=== PATIENT | male | born 1955 | race Caucasian/White ===

== ENCOUNTER 2017-12-29 10:55 | Day surgery (SDC) | payer BC ==
[~2017-12-29 10:55] MED LIST: Acetaminophen TAB* 325 MG PO PRN; Buffered Lidocaine 0.9% SYRIN* 5 ML/SYR SYRINGE INTRADERM ONE; Famotidine IV* 10 MG/ML 2 ML (20 mg) IV ONE; Famotidine IV* 10 MG/ML 2 ML (20 mg) ONE; HYDROmorphone INJ* 1 MG/ML CARPUJECT SYRINGE IV PRN; Naloxone* 0.4 MG/ML 1 ML VIAL IV PRN; Ondansetron INJ* 2 MG/ML VIAL IV PRN; oxyCODONE TAB* 5 MG TAB PO PRN
[2017-12-29] MEDS ORDERED: ceFAZolin 2 GM PREMIX (*) 2 GM/50 ML BAG IVPB ONE (11:05)
[2017-12-29] MEDS ORDERED: Midazolam* 1 MG/ML 5 ML VIAL (5 MG) ONE (11:12)
[2017-12-29] MEDS ORDERED: fentaNYL* 50 MCG/ML 2 ML VIAL (100 MCG VIAL) ONE (11:12)
[2017-12-29] MEDS ORDERED: Propofol* 500 MG/50 ML BTL ONE (12:06)
[2017-12-29] MEDS ORDERED: DiMENhydriNATE IV* 50 MG/ML VIAL ONE (12:10)
[2017-12-29] MEDS ORDERED: Dexamethasone IV* 4 MG/ML 1 ML (4 MG) ONE (12:10)
[2017-12-29] MEDS ORDERED: Lidocaine 2% PF * 5 ML VIAL ONE (12:10)
[2017-12-29] MEDS ORDERED: Ketorolac INJ* 30 MG/ML 1 ML VIAL ONE (12:10)
[2017-12-29] MEDS ORDERED: Bupivacaine 0.25% SDV* 30 ML ONE (12:50)
[2017-12-29 14:13] VITALS: BP 101/75
--- NOTE | 2017-12-30 16:08 | OP ---
OPERATIVE REPORT: DATE OF OPERATION: 12/29/17 DATE OF : 51 SURGEON: Ken Haney MD. MEDIA RELATIONS COORDINATOR: EMMIE Ortiz student. ANESTHESIOLOGIST: Dr. Rincon. ANESTHESIA: Local MAC. PRE-OP DIAGNOSIS: Right index finger tip partial amputation. POST-OP DIAGNOSIS: Right index finger tip partial amputation. OPERATIVE PROCEDURE: Revision amputation, left index finger. INDICATIONS: Rhys had an injury with a wood jointer. We talked about his options. I told him that we would assess and see how much could be preserved. I talked to him about the potential of a skin graft. It looks amenable with ablation of the nail bed. He understood. He wanted to proceed with surgery. ESTIMATED BLOOD LOSS: 5 mL. COMPLICATIONS: None. FINDINGS: See above and below. DESCRIPTION OF PROCEDURE: Rhys was seen in the preoperative holding area. The correct side, site, and procedure were identified. We came back to the operating room where a digital block was performed, the arm was prepped and draped in the usual fashion, and time-out was performed. I exsanguinated the finger with a Tourni-Cot device and left it on proximally throughout the procedure. I went ahead and washed and cleaned up the wound. The distal phalanx, over half of it was already gone, another portion was in already in fragments. There was nothing by the germinal matrix left. I decided to ablate the nail, so I went ahead and excised the dorsal aspect of the nail fold. I excised the entirety of the germinal matrix. I excised the bony fragments with the [place] blade. I then took a bone cutter and trimmed the distal phalanx down to a nice clean edge. At this point, I could easily bring the volar flap up and over and close the wound. I therefore excised the digital nerves distally in an effort to prevent neuroma formation. I brought the volar flap up. I trimmed the dog ears and closed the wound with 4-0 nylon suture. The wounds were dressed with Xeroform, 1-inch Roly, and a BandNet finger dressing was applied. After Tourni-Cot was cuff off, the volar flap did pink up. He was taken to recovery room in stable condition. [id number]/[facility] #: [id number] [facility]
== END 2017-12-29 14:30 | disposition home or self-care (01) ==
LOC: OREAST 10:55
PROVIDERS: ATTEND Orthopaedic Surgery Hand Surgery
DX: S61.311A Laceration without foreign body of left index finger with damage to nail, initial encounter (principal); W31.2XXA Contact with powered woodworking and forming machines, initial encounter; Y92.9 Unspecified place or not applicable; Z87.891 Personal history of nicotine dependence
CPT/HCPCS: 88302; J0690; J1100; J1240; J1885; J2250; J2704; J3010

== ENCOUNTER 2018-05-30 19:36 | Emergency (ER) | payer BC ==
[2018-05-30] MEDS ORDERED: Dexamethasone IV* 4 MG/ML 1 ML (4 MG) PO ONE (19:44)
[2018-05-30] MEDS ORDERED: diPHENhydraMINE PO* 25 MG PO ONE (19:45)
[2018-05-30 19:49] VITALS: BP 150/94
--- NOTE | 2018-05-30 19:52 | ED ---
Allergic Reaction/Systemic - HPI Summary HPI Summary: 62 yr old with the complaint of back of tongue, and throat feel swollen, tightness in throat, swelling to the face. Onset 1 pm today. He took 50 mg benadryl at 130 pm and another 25 mg at 430 pm. He really has not improved per the patient, and feels his face is more swollen. He denies drooling. No stridor. This happened to him in the past after eating banana. - History of Current Complaint Time Seen by Provider: 05/30/18 19:38 - Allergies/Home Medications Allergies/Adverse Reactions: Allergies Allergy/AdvReac Type Severity Reaction Status Date / Time No Known Allergies Allergy Verified 05/30/18 19:49 Home Medications: Home Medications Albuterol HFA INHALER* [Ventolin HFA Inhaler*] 2 puff INH Q4H PRN 05/30/18 [ History Confirmed 05/30/18] PMH/Surg Hx/FS Hx/Imm Hx Previously Healthy: Yes Respiratory History: Reports: Hx Asthma - seasonal- no symptoms in years Musculoskeletal History: Reports: Hx Arthritis Sensory History: Reports: Hx Contacts or Glasses Denies: Hx Hearing Aid Opthamlomology History: Reports: Hx Contacts or Glasses - Cancer History Hx Chemotherapy: No - Surgical History Surgery Procedure, Year, and Place: bi-lat shoulders, bi-lat carpel tunnel, L knee torn cartilege repair. deviated septum repair Hx Anesthesia Reactions: No Infectious Disease History: Denies: Traveled Outside the [place] in Last 30 Days - Family History Known Family History: Positive: None - Social History Lives: With Family Alcohol Use: Rare Substance Use Type: Reports: None Smoking Status (MU): Former Smoker Amount Used/How Often: 4 years 1/2ppd Review of Systems Constitutional: Negative Positive: Other - tongue and back of throat tight Positive: Other - no hives All Other Systems Reviewed And Are Negative: Yes Physical Exam Appearance: Positive: Well-Appearing, No Pain Distress Skin: Positive: Warm, Skin Color Reflects Adequate Perfusion Eyes: Positive: EOMI, GLORIA, Other: - eyelids with mild edema. ENT: Positive: Other - the back of tongue appears a little swollen and the soft palate is with some edema and redness. Uvula midline No drooling. no stridor.. Negative: Nasal congestion, Hoarse voice Neck: Positive: Nontender Respiratory/Lung Sounds: Positive: Clear to Auscultation, Breath Sounds Present Cardiovascular: Positive: RRR. Negative: Murmur Abdomen Description: Negative: Distended Musculoskeletal: Positive: Strength/ROM Intact Neurological: Positive: Sensory/Motor Intact, Alert, Oriented to Person Place, Time, CN Intact II-III Psychiatric: Positive: Normal - Bigg Coma Scale Best Eye Response: 4 - Spontaneous Best Motor Response: 6 - Obeys Commands Best Verbal Response: 5 - Oriented Coma Scale Total: 15 Allergic Reaction Course/Dx - Course Course Of Treatment: 62 yr old with some evidence of angioedema. He refuses ambulance transfer. Risks understood by patient and AMA form signed. Case DW Israel Deleon NP in [facility] and they are aware he is coming over there. - Diagnoses Provider Diagnoses: Angioedema, Allergic reaction Discharge - Sign-Out/Discharge Documenting (check all that apply): Patient Departure All imaging exams completed and their final reports reviewed: No Studies - Discharge Plan Condition: Good Disposition: AGAINST MEDICAL ADVICE Referrals: Rhys Hawk MD [Primary Care Provider] - - Billing Disposition and Condition Condition: GOOD Disposition: Against Medical Advice
== END 2018-05-30 20:01 | disposition left against medical advice (07) ==
LOC: UCCORT 19:36
DX: T78.3XXA Angioneurotic edema, initial encounter (principal); J45.909 Unspecified asthma, uncomplicated; Z87.891 Personal history of nicotine dependence
CPT/HCPCS: 99212; A9270-GY; G0463; J1100

== ENCOUNTER 2018-08-23 14:46 | Emergency (ER) | payer BC, MEDICARE ==
[2018-08-23 14:59] VITALS: BP 151/84
--- NOTE | 2018-08-23 15:14 | UC ---
Throat Pain/Nasal Chad HPI - HPI Summary HPI Summary: 63-year-old gentleman here with a chief complaint of 3-1/2 weeks of upper respiratory tract infection symptoms. Initially started out as a runny nose sore throat. It gradually moved into his chest and his been having increasing wheezing and shortness of breath. He uses albuterol inhaler which does help with the wheezing and shortness of breath. Some chills no recent fevers. Is also having some left ear pain and decreased hearing in that ear. - History of Current Complaint Chief Complaint: UCRespiratory Stated Complaint: COUGH,CONGESTION(HX:ASTHMA) Time Seen by Provider: 08/23/18 15:01 Pain Intensity: 0 - Allergies/Home Medications Allergies/Adverse Reactions: Allergies Allergy/AdvReac Type Severity Reaction Status Date / Time No Known Allergies Allergy Verified 08/23/18 14:56 Home Medications: Home Medications Ibuprofen TAB* [Motrin TAB* 600 MG] 600 mg PO Q6H PRN 08/23/18 [History Confirmed 08/23/18] diPHENhydraMINE PO* [Benadryl PO 50 MG CAP*] 50 mg PO Q6H PRN 08/23/18 [History Confirmed 08/23/18] PMH/Surg Hx/FS Hx/Imm Hx Previously Healthy: Yes Respiratory History: Asthma - Surgical History Surgical History: Yes Surgery Procedure, Year, and Place: bi-lat shoulders, bi-lat carpel tunnel, L knee torn cartilege repair. deviated septum repair - Family History Known Family History: Positive: None - Social History Alcohol Use: None Substance Use Type: None Smoking Status (MU): Former Smoker Amount Used/How Often: 4 years 1/2ppd When Did the Patient Quit Smoking/Using Tobacco: 40 years ago Review of Systems All Other Systems Reviewed And Are Negative: Yes Constitutional: Positive: Chills Skin: Positive: Negative Eyes: Positive: Negative ENT: Positive: Sore Throat, Ear Ache, Nasal Discharge, Sinus Congestion, Sinus Pain/Tenderness Respiratory: Positive: Shortness Of Breath, Cough, Other - wheezing Cardiovascular: Positive: Negative Gastrointestinal: Positive: Negative Motor: Positive: Negative Neurovascular: Positive: Negative Musculoskeletal: Positive: Negative Neurological: Positive: Negative Psychological: Positive: Negative Is Patient Immunocompromised?: No Physical Exam Triage Information Reviewed: Yes Appearance: No Pain Distress, Well-Nourished, Ill-Appearing - mild Vital Signs: Initial Vital Signs Temp 97.6 F 08/23/18 14:55 Pulse 98 08/23/18 14:55 Resp 16 08/23/18 14:55 BP 151/84 08/23/18 14:55 Pulse Ox 98 08/23/18 14:55 Vital Signs Reviewed: Yes Eye Exam: Normal Eyes: Positive: Conjunctiva Clear ENT: Positive: Pharyngeal erythema, Nasal congestion, Nasal drainage, TM bulging - left cindi Neck exam: Normal Neck: Positive: Supple, Nontender Respiratory: Positive: Lungs clear, Normal breath sounds, No respiratory distress Cardiovascular: Positive: RRR Musculoskeletal Exam: Normal Musculoskeletal: Positive: Strength Intact, ROM Intact Neurological Exam: Normal Neurological: Positive: Alert, Muscle Tone Normal Psychological Exam: Normal Psychological: Positive: Age Appropriate Behavior Skin Exam: Normal Throat Pain/Nasal Course/Dx - Course Course Of Treatment: Order Information: CHEST PA LAT 2 VWS. Accession Number: [id number]. CPT: 36026. INDICATION: Cough and wheezing for 3 weeks. COMPARISON: There are no relevant prior studies available for comparison. TECHNIQUE: Dual-energy PA and lateral views of the chest were obtained. FINDINGS: The heart is within normal limits in size. Mediastinal and hilar contours. appear within normal limits. The lungs are hyperinflated and clear. No pleural effusion is seen. IMPRESSION: FINDINGS CONSISTENT WITH COPD, NO EVIDENCE FOR ACUTE FINDING. . <Electronically signed by Tomas Tenorio MD in [place]> 08/23/18 1526. Discussed the chest x-ray results with the patient. At this time we'll treat with Augmentin for the sinusitis and serous otitis media and also refill his albuterol to be used as needed and also prednisone 40 mg a day for 5 days. For the Worsening asthma COPD. Follow-up his primary care doctor get reevaluated sooner if worse or any questions or concerns. - Differential Dx/Diagnosis Provider Diagnosis: Acute serous otitis media, left ear, Sinusitis, Asthma Discharge - Sign-Out/Discharge Documenting (check all that apply): Patient Departure All imaging exams completed and their final reports reviewed: Yes - Discharge Plan Condition: Stable Disposition: HOME Prescriptions: Albuterol HFA INHALER* [Ventolin HFA Inhaler*] 2 puff INH Q4H PRN #1 mdi PRN Reason: Wheezing Amoxicillin/Clavulanate TAB* [Augmentin TAB 875*] 875 mg PO BID #20 tab predniSONE TAB* [Deltasone 20 MG TAB*] 40 mg PO DAILY #10 tab Patient Education Materials: Asthma (ED), Sinusitis (ED), Serous Otitis Media ( ED) Referrals: Rhys Hawk MD [Primary Care Provider] - Additional Instructions: FOLLOW UP WITH YOUR DOCTOR IF NOT COMPLETELY IMPROVED. GET RECHECKED FOR ANY WORSENING OF YOUR CONDITION OR QUESTIONS OR CONCERNS. - Billing Disposition and Condition Condition: STABLE Disposition: Home
== END 2018-08-23 15:40 | disposition home or self-care (01) ==
LOC: UCCORT 14:46
DX: H65.02 Acute serous otitis media, left ear (principal); J32.9 Chronic sinusitis, unspecified; Z87.891 Personal history of nicotine dependence; J45.909 Unspecified asthma, uncomplicated
CPT/HCPCS: 71046; 99212; G0463